=== PATIENT | male | born 1970 | race Caucasian/White ===

== ENCOUNTER → 2017-07-23 | Outpatient (CLI) | payer MEDICARE ==
[2017-07-23 19:10] LABS: Basophils # (A) 0.1 k/uL (0-0.2); Basophils % (A) 1 %; CH 29.8; CHCM 32.7; Eosinophils # (A) 0.5 k/uL (0-0.7); Eosinophils % (A) 4 %; HCT 49.4 % (39.0-53.0); HDW 2.29; HGB 16.4 gm/dL (13.0-17.5); Luc # (Auto) 0.12; Luc % (Auto) 1; Lymphocytes # (A) 2.2 k/uL (1.0-4.8); Lymphocytes % (A) 18 %; MCH 30.5 pg (25.0-35.0); MCHC 33.2 g/dL (31.0-37.0); MCV 91.8 fL (80.0-100.0); Mean Platelet Volume 10.1; Monocytes # (A) 0.7 k/uL (0-1.0); Monocytes % (A) 6 %; Neutrophils # (A) 8.7 k/uL (1.3-7.7); Neutrophils % (A) 71 %; RBC 5.38 m/uL (4.30-5.90); RDW 14.1 % (11.5-15.5); WBC 12.3 k/uL (3.8-10.6)
[2017-07-23 19:11] LABS: ALT 41 U/L (21-72); AST 25 U/L (17-59); Alkaline Phosphatase 59 U/L (38-126); Anion Gap 10 mmol/L; Blood Urea Nitrogen 10 mg/dL (9-20); Calcium 9.6 mg/dL (8.4-10.2); Carbon Dioxide 25 mmol/L (22-30); Chloride 104 mmol/L (98-107); Cholesterol 209 mg/dL (<200); Glucose 85 mg/dL (74-99); HDL Cholesterol 48 mg/dL (40-60); Non-African American GFR(MDRD) >60 (>60 ml/min/1.73 sqM); Sodium 139 mmol/L (137-145); Total Bilirubin 0.5 mg/dL (0.2-1.3); Total Protein 7.3 g/dL (6.3-8.2)
== END ==
LOC: MMGSC 13:42
PROVIDERS: ATTEND Family Medicine
DX: Z00.00 Encounter for general adult medical examination without abnormal findings (principal)
CPT/HCPCS: 36415; 80053; 80061; 84439; 84443; 85025

== ENCOUNTER → 2023-01-29 | Outpatient (CLI) | payer MEDICARE ==
--- NOTE | 2023-01-29 17:49 | CT ---
EXAMINATION TYPE: CT abdomen w con CT DLP: 923.50. mGycm, Automated exposure control for dose reduction was used. DATE OF EXAM: 01/29/2023 4:58 PM COMPARISON: None CLINICAL INDICATION:Male, 52 years old with history of R14.0, R10.9; upper abdominal pain with outwar d bulge. TECHNIQUE: Axial CT of the abdomen Sagittal and coronal reformats were created on a separate worksta tion. Contrast used:100 mL of Isovue 300 with IV Contrast, Oral contrast used: with Oral Contrast FINDINGS: LOWER CHEST: Unremarkable ABDOMEN LIVER: Diffusely hypoattenuating parenchyma. GALLBLADDER AND BILE DUCTS: Unremarkable. PANCREAS: Unremarkable. SPLEEN: Small splenule is present. ADRENAL GLANDS: Unremarkable. KIDNEYS AND URETERS: No evidence of hydronephrosis or renal calculus. The ureters are unremarkable. Bilateral simple appearing renal cysts. PELVIS BLADDER: Unremarkable REPRODUCTIVE: Unremarkable. ABDOMEN & PELVIS STOMACH AND BOWEL: No evidence of bowel obstruction. Appendix is normal. PERITONEUM/RETROPERITONEUM: No evidence of pneumoperitoneum or free fluid. VASCULATURE: No evidence of aortic aneurysm. Scattered atherosclerosis of the arterial vasculature. MUSCULOSKELETAL: No acute osseous abnormalities. Mild disc degeneration changes are present throughou t the thoracolumbar spine. LYMPH NODES: No gross evidence for lymphadenopathy. SOFT TISSUE/ABDOMINAL WALL: There is diastasis of the rectus abdominis muscle measuring up to 4.4 cm. IMPRESSION: 1. No evidence for acute intra-abdominal process. 2. Diastases of the rectus abdominis muscle. 3. Hepatic steatosis. 4. Simple appearing renal cysts bilaterally.
== END | disposition home or self-care (01) ==
LOC: RADCTMAIN 15:46
PROVIDERS: ATTEND Family Medicine
DX: K76.0 Fatty (change of) liver, not elsewhere classified (principal); N28.1 Cyst of kidney, acquired; M62.08 Separation of muscle (nontraumatic), other site; R14.0 Abdominal distension (gaseous)
CPT/HCPCS: 74160; Q9967

== ENCOUNTER 2023-02-07 05:48 | Day surgery (SDC) | payer MEDICARE ==
[2023-02-07] MEDS ORDERED: LIDOCAINE 1% (10MG/ML) FOR IV START INTRADERMA PRN (05:57)
[2023-02-07] MEDS ORDERED: LACTATED RINGERS 1,000 ML IV SCH (05:57)
[2023-02-07 06:45] VITALS: RESP 16; TEMP 98.3
[2023-02-07] MEDS ORDERED: PROPOFOL 10 MG/ML 20 ML VIAL IV ONE (06:50)
[2023-02-07] MEDS ORDERED: LIDOCAINE 2% INJ 20 MG/ML (2 ML VIAL) ONE (06:50)
[2023-02-07] MEDS ORDERED: ONDANSETRON 4 MG/2 ML VIAL IVP PRN (07:00)
--- NOTE | 2023-02-07 07:20 | P.PCN ---
Date of Procedure: 02/07/23 Procedure(s) Performed: Brief history: Patient is a pleasant 50-year-old white scheduled for an elective upper endoscopy as well as colonoscopy as a part of evaluation of epigastric pain, epigastric abdominal bloating and belching for the last 2 months duration. He scheduled for a colonoscopy as a part of screening for colorectal neoplasia Procedure performed: Esophagogastroduodenoscopy with biopsy Colonoscopy with snare polypectomy Preoperative diagnosis: Epigastric pain/abdominal bloating and heartburn Screening for colon cancer Anesthesia: MAC Procedure: After informed consent was obtained from the patient was brought into the endoscopy unit and IV sedation was administered by anesthesia under continuous monitoring. Initially upper endoscopy was done. The Olympus GF 160 video endoscope was inserted inserted into the mouth and esophagus intubated without any difficulty and was gradually advanced into the stomach and duodenum and carefully examined. The bulb and second part of the duodenum appeared normal. The scope was then withdrawn into the stomach adequately insufflated with air and upon careful examination the antrum had mild gastritis and biopsies were done from this area. Mucosa of the body, cardia and fundus appeared normal. The scope was then withdrawn into the esophagus. The GE junction was located at 40 cm to the incisors. There were linear erosions in the distal esophagus consistent with LA grade B reflux esophagitis. Rest of the esophagus appeared normal. Patient tolerated the procedure well. At this time the patient continued to remain sedation. Initial digital rectal examination was normal. Olympus CF 160 video colonoscope was then inserted into the rectum and gradually advanced to the cecum without any difficulty. Careful examination was performed as the scope was gradually being withdrawn. The prep was excellent. The cecum, ascending colon, transverse colon, descending colon, sigmoid colon and rectum appeared normal. In the distal sigmoid colon there was a 5 mm polyp that was removed by snare polypectomy. Retroflexion was performed in the rectum and no lesions were noted. Patient tolerated the procedure well. Impression: 1. Upper endoscopy revealed linear erosions in the distal esophagus consistent with LA grade B reflux esophagitis and mild gastritis 2. Colonoscopy revealed 5 mm distal sigmoid colon polyp status post polypectomy Recommendations: Findings of this examination were discussed with the patient as well as her family. He was advised to follow with biopsy. He'll be given a trial of Prilosec 20 mg daily and was briefly educated about antireflux measures. If the biopsy readings adenoma she can have a repeat colonoscopy in 5 years.
[2023-02-07 08:43] VITALS: BP 128/72; PULSE 89
== END 2023-02-07 08:20 | disposition home or self-care (01) ==
LOC: ORWHC2ENDO 05:48
PROVIDERS: ATTEND Internal Medicine Gastroenterology
DX: K63.5 Polyp of colon (principal); K29.50 Unspecified chronic gastritis without bleeding; K21.00 Gastro-esophageal reflux disease with esophagitis, without bleeding; I10 Essential (primary) hypertension; F12.90 Cannabis use, unspecified, uncomplicated; G35 Multiple sclerosis; Z79.899 Other long term (current) drug therapy
CPT/HCPCS: 88305; 45385; 43239; J2704; J2001